=== PATIENT | female | born 1980 | race Caucasian/White ===

== ENCOUNTER 2018-01-02 05:26 | Emergency (ER) | payer MEDICAID ==
[2018-01-02] MEDS: ACETAMINOPHEN 500 MG TAB PO (06:30)
== END 2018-01-02 06:48 | disposition home or self-care (01) ==
LOC: FTE 05:26
DX: O99.512 Diseases of the respiratory system complicating pregnancy, second trimester (principal); J02.9 Acute pharyngitis, unspecified; Z3A.24 24 weeks gestation of pregnancy; Z87.891 Personal history of nicotine dependence
CPT/HCPCS: 99283; Z7502

== ENCOUNTER 2018-01-02 06:50 | Outpatient (CLI) | payer MEDICAID | END 2018-01-02 08:28 | disposition home or self-care (01) | LOC: OBT 06:50 → L-D 06:50 → OBT 08:28 | DX: O98.512 Other viral diseases complicating pregnancy, second trimester (principal); B34.9 Viral infection, unspecified; Z3A.23 23 weeks gestation of pregnancy | CPT/HCPCS: 76818 ==

== ENCOUNTER 2018-04-30 14:31 | Inpatient (IN) | payer MEDICAID ==
[2018-04-30] MEDS ORDERED: OXYTOCIN 30 UNITS/LR 500 ML IV (15:30)
[2018-04-30] MEDS ORDERED: MISOPROSTOL 200 MCG TAB PR (15:30)
[2018-04-30] MEDS ORDERED: LIDOCAINE 1% (MPF) 30 ML INJ INJ (15:30)
[2018-04-30] MEDS ORDERED: CARBOPROST 250 MCG INJ IM (15:30)
[2018-04-30] MEDS: LACTATED RINGER'S 1,000 ML IV* ×2 (16:03→23:04)
[2018-04-30 16:05] LABS: ADD MAN DIFF? NO
[2018-04-30 16:09] LABS: BASOPHILS % 0.3 % (0.0-2.0); EOSINOPHILS # 0.1 10^3/ul (0.0-0.5); EOSINOPHILS % 0.8 % (0.0-7.0); HEMATOCRIT 28.8 % (37.0-47.0); HEMOGLOBIN 9.3 g/dl (12.0-16.0); LYMPHOCYTES # 1.9 10^3/ul (0.8-2.9); LYMPHOCYTES % 21.2 % (15.0-51.0); MEAN CORPUSCULAR HEMOGLOBIN 27.4 pg (29.0-33.0); MEAN CORPUSCULAR HGB CONC 32.3 g/dl (32.0-37.0); MEAN PLATELET VOLUME 11.1 fl (7.4-10.4); MONOCYTE # 0.6 10^3/ul (0.3-0.9); MONOCYTES % 6.4 % (0.0-11.0); NEUTROPHIL # 6.2 10^3/ul (1.6-7.5); NEUTROPHILS % 70.1 % (39.0-77.0); NUCLEATED RED BLOOD CELLS% 0.2 /100WBC (0.0-0.0); PLATELET COUNT 228 10^3/UL (140-415); RED BLOOD COUNT 3.39 10^6/ul (4.20-5.40); RED CELL DISTRIBUTION WIDTH 14.7 % (11.5-14.5)
[2018-04-30 16:09] LABS: WHITE BLOOD COUNT 8.9 10^3/ul (4.8-10.8)
[2018-04-30 16:31] LABS: INR 0.91; PROTIME 12.3 Sec (11.9-14.9)
[2018-04-30 16:32] LABS: PARTIAL THROMBOPLASTIN TIME 26.9 Sec (25.0-35.0)
[2018-04-30] MEDS: OXYTOCIN 30 UNITS/LR 500 ML IV (16:57)
[2018-04-30 17:01] LABS: HEPATITIS B SURFACE ANTIGEN NEGATIVE (NEGATIVE)
[2018-04-30 18:59] LABS: RAPID PLASMA REAGIN NONREACTIVE (NR)
[2018-05-01] MEDS: BUTORPHANOL 2 MG INJ IV (02:15)
[2018-05-01] MEDS: LACTATED RINGER'S 1,000 ML IV (04:37)
[2018-05-01] MEDS ORDERED: FENTAnyl 2MCG/ML-ROPIV 0.2% 100 ML (05:49)
[2018-05-01] MEDS: MIDAZOLAM 1 MG/ML 2 ML INJ IV (06:26)
[2018-05-01] MEDS ORDERED: NALOXONE (0.4 MG/ML) INJ IV (06:30)
[2018-05-01] MEDS: LACTATED RINGER'S 1,000 ML IV* ×2 (08:34→19:00)
[2018-05-01] MEDS: FENTAnyl 2MCG/ML-ROPIV 0.2% 100 ML BAG EPI (12:32)
[2018-05-01] MEDS: METHYLERGONOVINE 0.2 MG INJ IM (16:25)
[2018-05-01] MEDS: OXYTOCIN 30 UNITS/LR 500 ML IV ×2 (16:38→22:44)
[2018-05-01] MEDS: IBUPROFEN 600 MG TAB PO (17:46)
[2018-05-01] MEDS ORDERED: DIPHENHYDRAMINE 25 MG CAP PO (19:00)
[2018-05-01] MEDS ORDERED: ZOLPIDEM 5 MG TAB PO (19:00)
[2018-05-01] MEDS ORDERED: OXYTOCIN 30 UNITS/LR 500 ML IV (19:00)
[2018-05-01] MEDS ORDERED: CARBOPROST 250 MCG INJ IM (19:00)
[2018-05-01] MEDS ORDERED: METHYLERGONOVINE 0.2 MG INJ IM (19:00)
[2018-05-01] MEDS: CEFAZOLIN 2 GM/50 ML (PMX) 50 ML IVPB (19:00)
[2018-05-01] MEDS: MINERAL OIL LIGHT 10 ML VIAL TOP (19:00)
[2018-05-01] MEDS ORDERED: MISOPROSTOL 200 MCG TAB PR (19:00)
[2018-05-01] MEDS: LANOLIN 7 GM TUBE TOP (19:44)
[2018-05-01] MEDS: BENZOCAINE 20% 56 ML SPRAY TOP (19:45)
[2018-05-01] MEDS: WITCH HAZEL/GLYCERIN PAD PR (19:45)
[2018-05-01] MEDS: IBUPROFEN 800 MG TAB PO (23:41)
[2018-05-02] MEDS: LACTATED RINGER'S 1,000 ML IV* ×3 (02:48→18:48)
[2018-05-02] MEDS: ACETAMINOPHEN 325 MG TAB PO (04:38)
[2018-05-02] MEDS: SENNA/DOCUSATE NA (8.6MG/50MG) TAB PO ×2 (04:38→15:52)
[2018-05-02] MEDS: MAGNESIUM HYDROXIDE 30ML CUP PO (04:38)
[2018-05-02] MEDS: IBUPROFEN 800 MG TAB PO ×4 (05:40→23:37)
[2018-05-02 11:07] LABS: ADD MAN DIFF? NO
[2018-05-02 11:34] LABS: WHITE BLOOD COUNT 14.1 10^3/ul (4.8-10.8)
[2018-05-02 11:34] LABS: ABNORMAL IP MESSAGE 1; BASOPHILS % 0.3 % (0.0-2.0); EOSINOPHILS % 0.3 % (0.0-7.0); LYMPHOCYTES # 1.8 10^3/ul (0.8-2.9); LYMPHOCYTES % 12.8 % (15.0-51.0); MEAN CORPUSCULAR HEMOGLOBIN 28.1 pg (29.0-33.0); MEAN CORPUSCULAR HGB CONC 32.4 g/dl (32.0-37.0); MEAN CORPUSCULAR VOLUME 86.8 fl (82.0-101.0); MEAN PLATELET VOLUME 11.4 fl (7.4-10.4); MONOCYTE # 0.8 10^3/ul (0.3-0.9); MONOCYTES % 5.8 % (0.0-11.0); NEUTROPHIL # 11.3 10^3/ul (1.6-7.5); NEUTROPHILS % 79.9 % (39.0-77.0); PLATELET COUNT 188 10^3/UL (140-415); RED BLOOD COUNT 2.42 10^6/ul (4.20-5.40); RED CELL DISTRIBUTION WIDTH 14.9 % (11.5-14.5)
[2018-05-02 11:35] LABS: POSITIVE DIFF @See below
[2018-05-02 11:37] LABS: HEMOGLOBIN 6.8 g/dl (12.0-16.0)
[2018-05-02 11:38] LABS: PATH REVIEW? YES
[2018-05-02] MEDS: LIDOCAINE/MYLANTA 40 ML BTL PO (12:32)
[2018-05-02] MEDS: FERROUS SULFATE (EC) 325 MG TAB PO ×2 (13:32→21:35)
[2018-05-02] MEDS: WITCH HAZEL/GLYCERIN PAD PR (23:37)
[2018-05-02] MEDS: HYDROCODONE/APAP (5/325) TAB PO (23:37)
[2018-05-03] MEDS: LACTATED RINGER'S 1,000 ML IV* ×3 (02:48→18:48)
[2018-05-03] MEDS: IBUPROFEN 800 MG TAB PO ×3 (05:53→18:01)
[2018-05-03] MEDS: FERROUS SULFATE (EC) 325 MG TAB PO (09:00)
[2018-05-03] MEDS: DIPHTH/TET/ACEL PERTUSS (ADULT) 0.5 ML VIAL IM* (09:01)
[2018-05-03] MEDS: MEASLES,MUMPS,RUBELLA VACCINE INJ SC* (09:16)
[2018-05-03] MEDS: VARICELLA VACCINE LIVE/PF 1,350 UNIT/0.5 ML ML SC* (09:16)
== END 2018-05-03 19:20 | disposition home or self-care (01) | DRG 775 ==
LOC: PP1 05-01 18:08 → L-D 14:31
PROVIDERS: Obstetrics & Gynecology
PROC: 4A1HXCZ Monitoring of Products of Conception, Cardiac Rate, External Approach (ICD-10-PCS; 2018-04-30)
PROC: 3E0P7GC Introduction of Other Therapeutic Substance into Female Reproductive, Via Natural or Artificial Opening (ICD-10-PCS; 2018-04-30)
PROC: 10D07Z6 Extraction of Products of Conception, Vacuum, Via Natural or Artificial Opening (ICD-10-PCS; principal; 2018-05-01)
PROC: 3E0234Z Introduction of Serum, Toxoid and Vaccine into Muscle, Percutaneous Approach (ICD-10-PCS; 2018-05-03)
DX: O48.0 Post-term pregnancy (principal); O75.81 Maternal exhaustion complicating labor and delivery; O90.81 Anemia of the puerperium; Z3A.41 41 weeks gestation of pregnancy; Z37.0 Single live birth; Z23 Encounter for immunization
CPT/HCPCS: 62319; 76815; 85025; 85610; 85730; 86592; 86850; 86900; 86901; 87340; 99464